=== PATIENT | female | born 2000 | race Caucasian/White ===

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

== ENCOUNTER → 2019-12-06 | Outpatient (CLI) | payer OTHER | END | disposition home or self-care (01) | LOC: RAD 12:14 | PROVIDERS: ATTEND Orthopaedic Surgery | DX: M54.6 Pain in thoracic spine (principal) ==

== ENCOUNTER 2020-11-23 21:28 | Emergency (ER) | payer OTHER ==
[~2020-11-23] VITALS: Ht 162.6 cm; Wt 68.0 kg
[2020-11-24] MEDS ORDERED: KETO10TA2 PO (01:59)
[2020-11-24] MEDS ORDERED: CEPHALEXIN500 M1 PO (01:59)
== END 2020-11-24 02:09 ==
LOC: ER 21:28
DX: M94.0 Chondrocostal junction syndrome [Tietze] (principal); R07.89 Other chest pain

== ENCOUNTER 2021-03-05 08:25 | Emergency (ER) | payer OTHER ==
[~2021-03-05] VITALS: Ht 162.6 cm; Wt 72.6 kg
[~2021-03-05 08:25] MED LIST changes: +CEPHALEXIN500 M1 PO
== END 2021-03-05 10:07 | disposition home or self-care (01) ==
LOC: ER 08:25
DX: K05.10 Chronic gingivitis, plaque induced (principal)

== ENCOUNTER 2022-05-11 19:33 | Emergency (ER) | payer OTHER ==
[~2022-05-11] VITALS: Ht 162.6 cm; Wt 68.0 kg
== END 2022-05-12 00:56 | disposition home or self-care (01) ==
LOC: ER 19:33
DX: N30.90 Cystitis, unspecified without hematuria (principal)

== ENCOUNTER 2024-11-28 22:00 | Emergency (ER) | payer OTHER ==
[~2024-11-28] VITALS: Ht 162.6 cm; Wt 68.5 kg
[~2024-11-28 22:00] MED LIST changes: +ORASEP SPRAY30 ML MM; +ZITHROMAX500 MG PO
[2024-11-28 22:07] VITALS: BP 140/80; O2SAT 100
[2024-11-29] MEDS ORDERED: KETOROLAC TROMETHAMINE 60 MG VIAL IM ONE ×2 (00:15→00:20)
[2024-11-29] MEDS ORDERED: CARAFATE1 GM/10 ML PO (00:22)
== END 2024-11-29 00:48 | disposition home or self-care (01) ==
LOC: ER 22:00
DX: J02.9 Acute pharyngitis, unspecified (principal); R63.39 Other feeding difficulties

== ENCOUNTER 2024-12-01 10:11 | Emergency (ER) | payer OTHER ==
[~2024-12-01] VITALS: Ht 162.6 cm; Wt 68.0 kg
[~2024-12-01 10:11] MED LIST changes: +CARAFATE1 GM/10 ML PO
[2024-12-01] MEDS ORDERED: BISMUTH SUBSALICYLATE 524 MG/30 ML BLIST.PACK PO ONE ×2 (11:15→11:24)
[2024-12-01 12:01] LABS: BASO % 0.4 % (0.1-1.2); EOS # 0.04 (0.04-0.54); EOS % 0.8 % (0.7-7.0); LYMPH # 1.56 (1.18-3.74); LYMPH % 29.9 % (19.3-53.1); MEAN PLATELET VOLUME 10.30 fl (9.4-12.4); MONO # 0.42 (0.24-0.82); MONO % 8.0 % (4.7-12.5); NEUT # 3.17 (1.56-6.13); NEUT % 60.7 % (34.0-71.1); RED CELL DISTRIBUTION WIDTH 11.6 % (11.6-14.4)
[2024-12-01 12:04] LABS: ERYTHROCYTE SEDIMENTATION RATE 22 mm/hr (0-20)
== END 2024-12-01 13:17 | disposition home or self-care (01) ==
LOC: ER 10:11
PROVIDERS: General Practice
DX: R07.0 Pain in throat (principal); Z91.018 Allergy to other foods